=== PATIENT | male | born 1970 | race Caucasian/White ===

== ENCOUNTER 2018-07-13 09:58 | Emergency (ER) | payer OTHER ==
[~2018-07-13] VITALS: Ht 185.4 cm; Wt 74.2 kg
[~2018-07-13 09:58] MED LIST: LEXAPRO10 MG PO; LISINOPRIL20 MG PO
[2018-07-13] MEDS ORDERED: LISINOPRIL10 MG PO (10:19)
[2018-07-13] MEDS ORDERED: TORADOL PO (11:06)
[2018-07-13] MEDS ORDERED: ULTRAM50 M1 PO (11:06)
[2018-07-13 11:38] VITALS: BP 110/75
== END 2018-07-13 11:39 | disposition home or self-care (01) ==
LOC: ED 09:58
DX: S62.304A Unspecified fracture of fourth metacarpal bone, right hand, initial encounter for closed fracture (principal); S62.306A Unspecified fracture of fifth metacarpal bone, right hand, initial encounter for closed fracture; I10 Essential (primary) hypertension; F17.200 Nicotine dependence, unspecified, uncomplicated; W22.09XA Striking against other stationary object, initial encounter; Y92.008 Other place in unspecified non-institutional (private) residence as the place of occurrence of the external cause